=== PATIENT | male | born 1960 ===

== ENCOUNTER 2022-10-11 12:37 | Observation (INO) ==
[~2022-10-11 12:37] MED LIST: Buffered Lidocaine 1% SYRIN 1 ml INTRADERM ONE
[2022-10-11] MEDS: Lactated Ringers 1000 ml BAG 1,000 ML IV SCH ×2 (13:27→21:25)
[2022-10-11] MEDS ORDERED: Midazolam 2 mg/2 ml VIAL 1 mg/ml 2 ml VIAL (2 mg) ONE (13:49)
[2022-10-11] MEDS ORDERED: ROPIVACAINE 5 MG/ML 30 ML BTL (0.5%) ONE (14:49)
[2022-10-11] MEDS ORDERED: Clindamycin 900 MG/50 **NS BAG 900 MG/50 ML BAG IVPB ONE (15:00)
[2022-10-11] MEDS ORDERED: Magnesium Hydroxide LIQ 30 ML UDC PO PRN (15:07)
[2022-10-11] MEDS ORDERED: Ondansetron ODT 4 mg TAB 4 MG TAB PO PRN (15:07)
[2022-10-11] MEDS ORDERED: Ondansetron 4 mg VIAL 2 MG/ML 2 ml VIAL IV PRN ×2 (15:07→16:13)
[2022-10-11] MEDS ORDERED: Lactulose 30 ml UDC PO PRN (15:07)
[2022-10-11] MEDS ORDERED: ceFAZolin 2 GM in NS PREMIX 2 GM/100 ML BAG IVPB ONE (15:17)
[2022-10-11] MEDS ORDERED: Lactated Ringers 1000 ml BAG 1,000 ML IV SCH (16:00)
[2022-10-11] MEDS ORDERED: Naloxone 0.4 mg VIAL 0.4 mg/ml 1 ml VIAL IV PRN (16:13)
[2022-10-11] MEDS ORDERED: Dexmedetomidine 200 mcg/2 ml 2 ml VIAL (200 mcg) ONE (16:32)
[2022-10-11] MEDS ORDERED: Phenylephrine 40 mcg/mL 10mL (400mcg) SYRINGE ONE (17:11)
[2022-10-11] MEDS ORDERED: fentaNYL 100 mcg/2 ml 50 MCG/ML VIAL ONE (19:32)
[2022-10-11] MEDS: fentaNYL 100 mcg/2 ml 50 MCG/ML VIAL IV PRN ×2 (19:33→20:20)
[2022-10-11] MEDS ORDERED: Naloxone Nasal Spray 4 MG/0.1 ML NASAL.SPR INTRANASAL PRN (20:21)
[2022-10-11] MEDS: Morphine 2 MG/ML SYRINGE IV PRN (21:20)
[2022-10-11] MEDS ORDERED: Albuterol HFA INHALER 8 gm MDI INH PRN (21:40)
[2022-10-11] MEDS: Magnesium Hydroxide LIQ 30 ML UDC PO SCH (22:03)
[2022-10-11] MEDS ORDERED: HYDROmorphone 1 MG/1 ML SYRINGE IV ONE (23:00)
[2022-10-12] MEDS: ceFAZolin 1 GM ADVAN 1 GM in NS 0.9% 50 ML 50 ML IVPB SCH ×3 (00:48→16:29)
[2022-10-12] MEDS: Morphine 2 MG/ML SYRINGE IV PRN (02:54)
[2022-10-12 06:34] LABS: Hematocrit 37 % (42-52); Hemoglobin 12.7 g/dL (14.0-18.0); Mean Platelet Volume 8.3 fL (7.4-10.4); Platelet Count 206 10^3/uL (150-450)
[2022-10-12 07:01] LABS: Calcium 8.7 mg/dL (8.6-10.3); Creatinine, Serum 0.93 mg/dL (0.67-1.17); Potassium 4.5 mmol/L (3.5-5.0); eGFR CKD-EPI 91.7 (>60)
[2022-10-12] MEDS: Vitamin THERAPEUTIC TAB PO SCH (09:32)
[2022-10-12] MEDS: DARUNAVIR COBI EMTRI TENOF ALA PO SCH (09:33)
[2022-10-12] MEDS: Magnesium Hydroxide LIQ 30 ML UDC PO SCH ×2 (09:36→20:17)
[2022-10-12] MEDS: Enoxaparin 40 MG/0.4 ML SYR SUBCUT SCH (09:38)
[2022-10-13 06:46] LABS: Hematocrit 36 % (42-52); Mean Platelet Volume 8.6 fL (7.4-10.4); Platelet Count 190 10^3/uL (150-450)
[2022-10-13 07:16] LABS: Calcium 8.6 mg/dL (8.6-10.3); Creatinine, Serum 0.85 mg/dL (0.67-1.17); Potassium 4.9 mmol/L (3.5-5.0)
[2022-10-13] MEDS: Magnesium Hydroxide LIQ 30 ML UDC PO SCH ×2 (08:31→20:24)
[2022-10-13] MEDS: Enoxaparin 40 MG/0.4 ML SYR SUBCUT SCH (08:33)
[2022-10-13] MEDS: Vitamin THERAPEUTIC TAB PO SCH (08:33)
[2022-10-13] MEDS: DARUNAVIR COBI EMTRI TENOF ALA PO SCH (08:35)
[2022-10-14 07:20] LABS: Hematocrit 36 % (42-52); Hemoglobin 12.2 g/dL (14.0-18.0); Mean Platelet Volume 8.8 fL (7.4-10.4); Platelet Count 208 10^3/uL (150-450)
[2022-10-14 07:37] LABS: Creatinine, Serum 0.86 mg/dL (0.67-1.17); Potassium 4.9 mmol/L (3.5-5.0); eGFR CKD-EPI 96.7 (>60)
[2022-10-14] MEDS: Vitamin THERAPEUTIC TAB PO SCH (10:13)
[2022-10-14] MEDS: Magnesium Hydroxide LIQ 30 ML UDC PO SCH (10:13)
[2022-10-14] MEDS: DARUNAVIR COBI EMTRI TENOF ALA PO SCH (10:15)
[2022-10-14] MEDS: Enoxaparin 40 MG/0.4 ML SYR SUBCUT SCH (10:15)
[2022-10-15 06:17] LABS: Hematocrit 33 % (42-52); Hemoglobin 11.3 g/dL (14.0-18.0); Mean Platelet Volume 8.8 fL (7.4-10.4); Platelet Count 211 10^3/uL (150-450)
[2022-10-15] MEDS: Enoxaparin 40 MG/0.4 ML SYR SUBCUT SCH (10:36)
[2022-10-15] MEDS: DARUNAVIR COBI EMTRI TENOF ALA PO SCH (10:36)
[2022-10-15] MEDS: Vitamin THERAPEUTIC TAB PO SCH (10:36)
[2022-10-16 06:46] LABS: Hematocrit 32 % (42-52); Hemoglobin 10.9 g/dL (14.0-18.0); Mean Platelet Volume 8.5 fL (7.4-10.4); Platelet Count 222 10^3/uL (150-450)
[2022-10-16] MEDS: Vitamin THERAPEUTIC TAB PO SCH (09:25)
[2022-10-16] MEDS: Enoxaparin 40 MG/0.4 ML SYR SUBCUT SCH (09:25)
[2022-10-16] MEDS: DARUNAVIR COBI EMTRI TENOF ALA PO SCH (09:28)
[2022-10-17] MEDS: DARUNAVIR COBI EMTRI TENOF ALA PO SCH (08:08)
[2022-10-17] MEDS: Enoxaparin 40 MG/0.4 ML SYR SUBCUT SCH (08:09)
[2022-10-17] MEDS: Vitamin THERAPEUTIC TAB PO SCH (08:09)
[2022-10-17 15:58] VITALS: BP 109/71
== END 2022-10-17 19:50 | disposition home or self-care (01) ==
LOC: OR 12:37 → INTOOBSV 21:15 → SSU 21:15 → UNDODISOB 10-17 18:30
PROVIDERS: ADMIT Orthopaedic Surgery Adult Reconstructive Orthopaedic Surgery; ATTEND Orthopaedic Surgery Adult Reconstructive Orthopaedic Surgery